=== PATIENT | male | born 1980 | race Caucasian/White ===

== ENCOUNTER → 2018-10-12 | Outpatient (CLI) | payer OTHER | END | disposition home or self-care (01) | LOC: Rad HDHVI 08:05 | PROVIDERS: ATTEND Internal Medicine | DX: I08.0 Rheumatic disorders of both mitral and aortic valves (principal); I10 Essential (primary) hypertension; I20.9 Angina pectoris, unspecified | CPT/HCPCS: 93306 ==

== ENCOUNTER → 2018-10-28 | Outpatient (CLI) | payer MEDICAID ==
[~2018-10-28] VITALS: Ht 188 cm; Wt 81.6 kg
[~2018-10-28] MED LIST: ADENOSINE 69 MG in GIVE UN-DILUTED 0 ML IV ONE; ADENOSINE 90 MG/30 ML INJ IV ONE
== END | disposition home or self-care (01) ==
LOC: Rad HDHVI 09:48
PROVIDERS: ATTEND Internal Medicine
DX: I10 Essential (primary) hypertension (principal); I20.9 Angina pectoris, unspecified; E78.1 Pure hyperglyceridemia; F32.9 Major depressive disorder, single episode, unspecified; G35 Multiple sclerosis
CPT/HCPCS: 78452; 93005; 96374; 96375; A9500; J0153